=== PATIENT | male | born 1950 | race Caucasian/White ===

== ENCOUNTER 2019-03-19 10:03 | Outpatient (CLI) | payer OTHER | END 2019-03-19 21:12 | disposition home or self-care (01) | LOC: SRD 10:03 | PROVIDERS: ATTEND Internal Medicine | DX: M17.11 Unilateral primary osteoarthritis, right knee (principal); M76.51 Patellar tendinitis, right knee; I70.0 Atherosclerosis of aorta | CPT/HCPCS: 73564 ==